=== PATIENT | female | born 1965 | race Caucasian/White ===

== ENCOUNTER → 2025-04-17 10:27 | Outpatient (REF) | payer OTHER, SELFPAY ==
--- NOTE | 2025-04-17 11:42 | CARDSERVDEF ---
Echocardiogram with Definity completed after protocol screening completed. Allergies verified.
Patent IV site: _Right forearm 22 G PC inserted by [employer]____
IV site flushed with 0.9% NaCl pre and post administration.
Diluted bolus method utilized to enhance visualization of ventricular benitez.
Total volume given: __4.5__ mL
Patient tolerated all procedures well without complications.
Heplock D/C ed at 1140, site clear , no redness, no edema. Pressure held, no bleeding, 2x2 applied and taped. Pt offers no complaints.
== END ==
LOC: RCS 10:27
PROVIDERS: ATTENDING PHYSICIAN Internal Medicine; FAMILY PHYSICIAN Family Medicine
DX: R07.89 Other chest pain (principal); I10 Essential (primary) hypertension; R94.31 Abnormal electrocardiogram [ECG] [EKG]; R00.2 Palpitations
CPT/HCPCS: 93017; 93350; Q9957